=== PATIENT | male | born 1960 | race Two or more races ===

== ENCOUNTER 2021-01-28 13:26 | Inpatient (IN) | payer MEDICAID ==
[~2021-01-28] VITALS: Ht 188 cm; Wt 92.5 kg
--- NOTE | 2021-01-28 13:35 | NUR ---
Brought by the manager care management to the ER; complain of weakness and nausea-the patient is a known alcoholic for 15 years. The patient admits to being homeless The patient also states that he is been drinking beer the whole day yesterday, and woke up with severe weakness and nausea
--- NOTE | 2021-01-28 13:36 | NUR ---
Placed to ER 15; awaiting for ER provider to see
[2021-01-28] MEDS ORDERED: LORAZEPAM INJ 2 MG/ML VIAL IV ONE ×2 (15:00→16:30)
[2021-01-28] MEDS ORDERED: ONDANSETRON HCL/PF 4 MG/2 ML VIAL IVP ONE (15:00)
[2021-01-28] MEDS ORDERED: IV NS 0.9% 1,000 ML BAG IV ONE (15:00)
[2021-01-28] MEDS ORDERED: FAMOTIDINE/PF INJ 20 MG/2 ML VIAL IV ONE ×2 (15:00→15:58)
[2021-01-28 15:10] LABS: BASOPHILS % (AUTO) 0.3 % (0.0-2.0); EOSINOPHILS % (AUTO) 0.3 % (0.0-6.0); HEMATOCRIT 43 % (39-51); HEMOGLOBIN 15.3 g/dL (13.5-17.5); LYMPHOCYTES # (AUTO) 0.3 K/uL (0.8-4.8); LYMPHOCYTES % (AUTO) 3.7 % (20.0-44.0); MEAN CORPUSCULAR HGB CONC 35 g/dl (31.0-36.0); MEAN CORPUSCULAR VOLUME 101 fL (80-96); MONOCYTES # (AUTO) 0.6 K/uL (0.1-1.30); MONOCYTES % (AUTO) 6.1 % (2.0-12.0); NEUTROPHILS # (AUTO) 8.4 K/uL (1.8-8.9); NEUTROPHILS % (AUTO) 89.6 % (43.0-81.0); PLATELET COUNT (AUTO) 168 K/uL (150-450); RED BLOOD CELL COUNT(AUTO) 4.29 MIL/uL (4.5-6.0); WHITE BLOOD COUNT (AUTO) 9.4 K/uL (4.3-11.0)
[2021-01-28 15:19] LABS: CALCIUM, SERUM 8.1 mg/dL (8.5-10.1); CARBON DIOXIDE 26 mmol/L (21-32); CHLORIDE 93 mmol/L (98-107); CREATININE 1.2 mg/dL (0.6-1.3); GLUCOSE 167 mg/dL (74-106); SODIUM SERUM 136 mmol/L (136-145); UREA NITROGEN, BLOOD 11 mg/dL (7-18)
[2021-01-28 15:25] LABS: POTASSIUM 2.8 mmol/L (3.5-5.1)
[2021-01-28 15:28] LABS: ALANINE AMINOTRANSFERASE 29 U/L (12-78); ALBUMIN 3.6 g/dL (3.4-5.0); ALKALINE PHOSPHATASE 109 U/L (46-116); ASPARTATE AMINOTRANSFERASE 54 U/L (15-37); BILIRUBIN,DIRECT 0.4 mg/dL (0.0-0.2); BILIRUBIN,TOTAL 1.3 mg/dL (0.2-1.0); LIPASE 123 U/L (73-393); TOTAL PROTEIN, SERUM 6.5 g/dL (6.4-8.2)
[2021-01-28] MEDS ORDERED: LORAZEPAM INJ 2 MG/ML VIAL ONE ×2 (15:58→17:08)
[2021-01-28] MEDS ORDERED: ONDANSETRON HCL/PF 4 MG/2 ML VIAL ONE (15:58)
[2021-01-28] MEDS ORDERED: Magnesium 1GM/D5W 100ML PREMIX 100 ML IV SCH (16:30)
[2021-01-28] MEDS ORDERED: POTASSIUM CL. PREMIX PERIPHER. 50 ML ONE (16:30)
[2021-01-28] MEDS ORDERED: Magnesium 1GM/D5W 100ML PREMIX 100 ML IV ONE ×2 (16:30→17:11)
[2021-01-28] MEDS: POTASSIUM CL. PREMIX PERIPHER. 50 ML IV SCH ×3 (17:22→20:06)
--- NOTE | 2021-01-28 18:52 | NUR ---
URINE COLLECTED AND SENT TO THE LAB
--- NOTE | 2021-01-28 19:05 | NUR ---
REC'D REPORT FROM DARLING BATES FOR SAUL
--- NOTE | 2021-01-28 19:09 | NUR ---
COVID SWAB DONE AND SENT TO THE LAB
[2021-01-28] MEDS ORDERED: POTASSIUM CL. PREMIX PERIPHER. 100 ML ONE (20:02)
--- NOTE | 2021-01-28 20:06 | NUR ---
3/4 BAG OF KCL STARTED. ENDTIME 2105
--- NOTE | 2021-01-28 20:45 | NUR ---
GAVE REPORT TO DARLING BADILLO FOR SAUL
--- NOTE | 2021-01-28 20:51 | NUR ---
4TH AND FINAL BAG OF KCL TO BE INFUSED UPON ADMISSION
[2021-01-28 21:00] VITALS: BP 133/87
--- NOTE | 2021-01-28 21:30 | NUR ---
TELE/RN ADMITTING NOTE RECEIVED REPORT FROM BROKE BEATER OPERATOR NANCY. PATIENT ARRIVED TO UNIT AT APPROX. 2100. PATIENT IS ALERT AND ORIENTED X 4. ABLE TO MAKE NEEDS KNOWN. DENIES PAIN AT THIS TIME. CONTINUES ON ROOM AIR WITH NO S/SX OF RESPIRATORY DISTRESS NOTED. IV ACCESS TO RIGHT AC #20G AND LEFT AC #20G BOTH INTACT, PATENT AND SALINE LOCKED. CONTINUES ON 3RD BAG OF IV POTASSIUM. SKIN CHECK PERFORMED WITH REDNESS NOTED TO BILATERAL BUTTOCKS. WOUND CONSULT ORDERED. TELE MONITOR CURRENTLY READING SR. PATIENT DENIES NAUSEA OR VOMITING AT THIS TIME. PATIENT IS AMBULATORY WITH STEADY GAIT. CALL LIGHT WITHIN REACH. ASPIRATION, FALL AND SAFETY PRECAUTIONS MAINTAINED. WILL CONTINUE TO MONITOR.
--- NOTE | 2021-01-28 21:45 | NUR ---
TELE/RN NOTE LAST BAG OF POTASSIUM HUNG AT THIS TIME. PATIENT TOLERATING WELL. WILL CONTINUE TO MONITOR.
[2021-01-28] MEDS ORDERED: ACETAMINOPHEN 325 MG TABLET PO PRN (23:00)
[2021-01-28] MEDS ORDERED: Z GUARD REMEDY 2 OZ OINT TP PRN (23:00)
[2021-01-28] MEDS ORDERED: Potassium Chloride 20 MEQ in IV LR 1000 ML 1,000 ML IV PRN (23:00)
[2021-01-28] MEDS ORDERED: ONDANSETRON HCL/PF 4 MG/2 ML VIAL IVP PRN (23:00)
[2021-01-28] MEDS ORDERED: LORAZEPAM INJ 2 MG/ML VIAL IV PRN (23:00)
[2021-01-29] MEDS ORDERED: IV PREMIX NS +20MEQ KCL 1 L IV ONE (00:12)
[2021-01-29] MEDS: Potassium Chloride 20 MEQ in IV NS 0.9% 1,000 ML IV PRN ×2 (00:43→16:44)
[2021-01-29 06:14] LABS: BASOPHILS # (AUTO) 0.1 K/uL (0.0-0.2); BASOPHILS % (AUTO) 0.9 % (0.0-2.0); EOSINOPHILS % (AUTO) 2.5 % (0.0-6.0); HEMATOCRIT 36 % (39-51); HEMOGLOBIN 12.9 g/dL (13.5-17.5); LYMPHOCYTES # (AUTO) 0.7 K/uL (0.8-4.8); LYMPHOCYTES % (AUTO) 11.3 % (20.0-44.0); MEAN CORPUSCULAR HGB CONC 36 g/dl (31.0-36.0); MEAN CORPUSCULAR VOLUME 101 fL (80-96); MONOCYTES # (AUTO) 0.6 K/uL (0.1-1.30); MONOCYTES % (AUTO) 9.5 % (2.0-12.0); NEUTROPHILS # (AUTO) 4.6 K/uL (1.8-8.9); NEUTROPHILS % (AUTO) 75.8 % (43.0-81.0); PLATELET COUNT (AUTO) 124 K/uL (150-450); RED BLOOD CELL COUNT(AUTO) 3.57 MIL/uL (4.5-6.0); WHITE BLOOD COUNT (AUTO) 6.1 K/uL (4.3-11.0)
--- NOTE | 2021-01-29 06:50 | NUR ---
TELE/DIRECTOR ONLINE MARKETING NOTE PATIENT TRANSFERRED TO 3W BED 321-1. REPORT GIVEN TO CHIP HASTINGS FOR SAUL.
--- NOTE | 2021-01-29 07:26 | NUR ---
TELE/RN OPENING NOTE RECEIVED PATIENT RESTING IN BED. PATIENT IS ALERT AND ORIENTED X 4. ABLE TO MAKE NEEDS KNOWN. DENIES PAIN AT THIS TIME. PATIENT IS BREATHING EVENLY AND NONLABORED CONTINUES ON ROOM AIR WITH NO S/SX OF RESPIRATORY DISTRESS NOTED. IV ACCESS TO RIGHT AC #20G AND LEFT AC #20G BOTH INTACT, PATENT RUNNING NS WITH K 20 MEQ @ 125ML /HR. TELE MONITOR CURRENTLY READING SR. PATIENT DENIES NAUSEA OR VOMITING AT THIS TIME. CALL LIGHT WITHIN REACH. ASPIRATION, FALL AND SAFETY PRECAUTIONS MAINTAINED BED LOW LOCKED, WILL CONTINUE TO MONITOR.
[2021-01-29 08:00] VITALS: BP 160/89
[2021-01-29 08:05] LABS: BILIRUBIN,TOTAL 1.8 mg/dL (0.2-1.0); CALCIUM, SERUM 7.3 mg/dL (8.5-10.1); CREATININE 1.1 mg/dL (0.6-1.3); MAGNESIUM 1.7 mg/dL (1.8-2.4); PHOSPHORUS 3.7 mg/dL (2.5-4.9); POTASSIUM 2.9 mmol/L (3.5-5.1); TOTAL PROTEIN, SERUM 5.4 g/dL (6.4-8.2)
[2021-01-29] MEDS: MULTIVITAMINS,THERAGRAN 1 UDTAB TABLET PO SCH (08:07)
[2021-01-29] MEDS: THIAMINE HCL 100 MG TABLET PO SCH (08:07)
[2021-01-29] MEDS: PANTOPRAZOLE 40 MG VIAL IV SCH (08:07)
[2021-01-29] MEDS: Magnesium 1GM/D5W 100ML PREMIX 100 ML IV SCH ×2 (09:21→10:31)
[2021-01-29 09:29] LABS: THYROID STIMULATING HORMONE 2.308 uIU/mL (0.358-3.74)
[2021-01-29 12:00] VITALS: BP 160/88
[2021-01-29 16:00] VITALS: BP 139/97
[2021-01-29] MEDS ORDERED: DIPHENOXYLATE HCL/ATROP SULF 1 UDTAB TABLET PO PRN (16:00)
[2021-01-29] MEDS: GABAPENTIN 100 MG CAPSULE PO SCH (16:21)
--- NOTE | 2021-01-29 18:22 | NUR ---
TELE/RN CLOSING NOTE PATIENT RESTING IN BED. PATIENT IS ALERT AND ORIENTED X 4. ABLE TO MAKE NEEDS KNOWN. DENIES PAIN AT THIS TIME. PATIENT IS BREATHING EVENLY AND NONLABORED CONTINUES ON ROOM AIR WITH NO S/SX OF RESPIRATORY DISTRESS NOTED. IV ACCESS TO RIGHT AC #20G AND LEFT AC #20G BOTH INTACT, PATENT RUNNING NS WITH K 20 MEQ @ 125ML /HR. TELE MONITOR CURRENTLY READING SR. PATIENT DENIES NAUSEA OR VOMITING AT THIS TIME. ALL MEDICATIONS GIVEN ORDERED. CALL LIGHT WITHIN REACH. ASPIRATION, FALL AND SAFETY PRECAUTIONS MAINTAINED BED LOW LOCKED, WILL ENDORSE TO ONCOMING SHIFT.
[2021-01-29] MEDS ORDERED: LORAZEPAM INJ 2 MG/ML VIAL IV PRN (19:00)
--- NOTE | 2021-01-29 19:49 | NUR ---
HANDBAG FINISHER NOTES RECEIVED LYING COMFORTABLY ON BED,BREATHING EASY ,NO SOB.IVF NS WITH 20MEQ KCL INFUSING WELL ON RIGHT AC SALINE LOCK.SITE PATENT.DENIES DISCOMFORTS AT THE MOMENT,ONLY ASKING FOR FOOD.CALL LIGHT IN REACH,NEEDS ANTICIPATED.
[2021-01-29 20:00] VITALS: BP 150/94
--- NOTE | 2021-01-29 20:30 | NUR ---
ISO COORDINATOR NOTES ST-101 ON TELE MONITOR
[2021-01-30] VITALS: BP 153/100
[2021-01-30] MEDS: Potassium Chloride 20 MEQ in IV NS 0.9% 1,000 ML IV PRN (03:58)
[2021-01-30 04:00] VITALS: BP 147/93
[2021-01-30 06:10] LABS: BASOPHILS # (AUTO) 0.1 K/uL (0.0-0.2); BASOPHILS % (AUTO) 1.1 % (0.0-2.0); EOSINOPHILS % (AUTO) 3.8 % (0.0-6.0); HEMATOCRIT 36 % (39-51); HEMOGLOBIN 12.8 g/dL (13.5-17.5); LYMPHOCYTES # (AUTO) 0.8 K/uL (0.8-4.8); LYMPHOCYTES % (AUTO) 16.6 % (20.0-44.0); MEAN CORPUSCULAR HGB CONC 35 g/dl (31.0-36.0); MEAN CORPUSCULAR VOLUME 102 fL (80-96); MONOCYTES # (AUTO) 0.5 K/uL (0.1-1.30); MONOCYTES % (AUTO) 9.5 % (2.0-12.0); NEUTROPHILS # (AUTO) 3.5 K/uL (1.8-8.9); PLATELET COUNT (AUTO) 138 K/uL (150-450); RED BLOOD CELL COUNT(AUTO) 3.53 MIL/uL (4.5-6.0); WHITE BLOOD COUNT (AUTO) 5.1 K/uL (4.3-11.0)
--- NOTE | 2021-01-30 06:26 | NUR ---
MUSIC INTERNSHIP NOTES FAIRLY RESTED AT NIGHT.NO ETOH WITHDRAWAL NOTED,IVF WITH POTASSIUM INFUSING WELL.POSSIBLE D/C TODAY TO HOME.
[2021-01-30 06:35] LABS: BILIRUBIN,TOTAL 1.1 mg/dL (0.2-1.0); CALCIUM, SERUM 7.6 mg/dL (8.5-10.1); MAGNESIUM 1.9 mg/dL (1.8-2.4); PHOSPHORUS 3.8 mg/dL (2.5-4.9); POTASSIUM 2.9 mmol/L (3.5-5.1); TOTAL PROTEIN, SERUM 5.9 g/dL (6.4-8.2)
[2021-01-30] MEDS ORDERED: LOPE2CAP40 PO (07:47)
[2021-01-30] MEDS ORDERED: GABA100C PO (07:47)
[2021-01-30] MEDS ORDERED: PANT40VI IV (07:47)
[2021-01-30] MEDS ORDERED: Thiamine HCL PO (07:47)
[2021-01-30] MEDS: THIAMINE HCL 100 MG TABLET PO SCH (08:07)
[2021-01-30] MEDS: MULTIVITAMINS,THERAGRAN 1 UDTAB TABLET PO SCH (08:07)
[2021-01-30] MEDS: PANTOPRAZOLE 40 MG VIAL IV SCH (08:07)
[2021-01-30] MEDS: GABAPENTIN 100 MG CAPSULE PO SCH ×2 (08:07→12:21)
[2021-01-30 08:19] VITALS: BP 136/93
[2021-01-30] MEDS: POTASSIUM CHLORIDE 20 MEQ TAB.PRT.SR PO SCH ×3 (09:27→11:41)
[2021-01-30] MEDS ORDERED: POTASSIUM CHLORIDE 20 MEQ TAB.PRT.SR PO ONE (10:31)
--- NOTE | 2021-01-30 12:53 | NUR ---
LEAD CUSTOMER SERVICE REPRESENTATIVEBAIL BOND AGENT NOTE PATIENT DISCHARGED VIA SELF-AMBULATORY @ 1240. STABLE, A/O X4. NO SOB NOTED. NO DISTRESS/DISCOMFORT NOTED. ALL PATIENT EDUCATION AND EXITCARE REVIEWED WITH PATIENT - GIVEN DISCHARGE PAPERWORK FOLDER. PATIENT VERBALIZED UNDERSTANDING. IV ACCESS REMOVED. WRISTBAND REMOVED. ALL SCHEDULED MEDICATIONS GIVEN. PATIENT FULLY DRESSED AND AMBULATORY. PATIENT ACCOMPANIED TO [facility] BY MARIA. DELORES ELIZABETH AND CHARGE NURSE AWARE OF DISCHARGE.
--- NOTE | 2021-01-30 14:15 | NUR ---
Grab Operator consultation: Grab Operator consultation requested for alcohol withdrawal and possible homelessness. Per ED physicians notes, patient is a homeless male who came to the ED complaining of weakness with nausea, vomiting and diarrhea. Patient denies that he is a chronic drinker though states he has been drinking the last few days. This REVIEWER SALES met with the patient bedside in his hospital room. Patient is awake, alert, oriented x 4, receptive to speaking with this REVIEWER SALES. Patient states he was staying with a friend prior to this hospitalization, and was waiting to charge his phone in order to get a hold of his friend. Patient is independent with his ADLs. Patient denies hx of mental illness, and denies use of drugs. Patient reported use of alcohol, drinking beer 3-4 times a week. Patient denied being in treatment in the past for substance use. This REVIEWER SALES explored patients psychosocial needs and offered patient homeless community resources. Patient was receptive to these resources, and also requested clothing and transportation resources. Discharge plans discussed, and patient stated he will be calling his friend, once his phone was charged. The following resources were provided to the patient: 1) A pair of pants and a shirt 2) A one-day [employer] pass 3) a list of year round shelters [facility] [address] [place] [address], ; [facility] [address] [facility], ; and [facility] [address] [facility], ; [facility], ; [facility], [address], [address], ; [facility], [address] [facility], [address], . [facility], [facility], [address] [address], [address], , [facility], [address] [place] [address], , [facility], [facility], [address], [place] [address], [facility], [facility], [address], (men only). [facility] homeless directory which provides a list of places that individuals can go to throughout the week for hot meals, sack lunches, food pantries, and showers; a list of mental health clinics: [facility] [address] [place] [address], ; [facility] [address] [place] [address], ; [facility] [address] [place] [address], ; a list of medical clinics: [facility] [address] [facility] [address], [place]. [place], ; [facility] [address] [facility] [place] [address]; [facility] [address] [facility] [place] [address], ; and a list of substance abuse programs: [facility] Substance Abuse Self-helpline ; [facility] ; [facility] ; [facility] ; [facility] [place] ; [facility] [phone]; [facility] [phone]. SW also provided patient with information on locations of pharmacies. Patient signed the homeless patient waiver form and this REVIEWER SALES filed the form in the patient's chart.
== END 2021-01-30 15:30 | disposition home or self-care (01) | DRG 775 ==
LOC: EDSEX 13:29 → ER 13:29 → EDBD 19:50 → TELE1 19:50 → TELE 01-29 06:43
PROVIDERS: ADMIT Nurse Practitioner Acute Care; ATTEND Nurse Practitioner Acute Care
DX: F10.239 Alcohol dependence with withdrawal, unspecified (principal); I67.2 Cerebral atherosclerosis; E80.6 Other disorders of bilirubin metabolism; K29.20 Alcoholic gastritis without bleeding; E83.42 Hypomagnesemia; E87.6 Hypokalemia; Y90.3 Blood alcohol level of 60-79 mg/100 ml; F32.9 Major depressive disorder, single episode, unspecified; Z59.0 Homelessness; F17.200 Nicotine dependence, unspecified, uncomplicated; H91.90 Unspecified hearing loss, unspecified ear; G62.9 Polyneuropathy, unspecified
CPT/HCPCS: 36415; 70450-TC; 71045-TC; 73610-TC; 73630-TC; 80048-TC; 80053-TC; 80061-TC; 80076-TC; 83540-TC; 83690-TC; 83735-TC; 84100-TC; 84443-TC; 84484-TC; 85025-TC; 87081-TC; C9113; G0378; G0480; J2060; J2405; J3475; J3480; J3490; J7030; J7120